=== PATIENT | female | born 1930 | race Caucasian/White ===

== ENCOUNTER 2016-09-11 15:47 | Emergency (ER) | payer MEDICARE, BC ==
[~2016-09-11 15:47] MED LIST: 1-ME1LIQ PO; ATOR40TA PO; DONE5TAB14 PO; ESCI10TA PO; ZOLP10TA3 PO
[2016-09-11 16:14] VITALS: BP 127/64; PULSE 57; RESP 18; TEMP 97.7; O2SAT 99
[2016-09-11] MEDS ORDERED: SODIUM CHLORIDE 0.9% FLUSH 10 ML FLUSH IVF PRN (16:15)
[2016-09-11] MEDS ORDERED: SODIUM CHLORID 0.9% 500 ML INJ 500 ML IV ONE (16:15)
[2016-09-11] MEDS ORDERED: ASPIRIN 81 MG CHEW TAB PO ONE (16:15)
[2016-09-11 16:17] VITALS: O2SAT 98
--- NOTE | 2016-09-11 16:20 | PD ---
HPI Chief Complaint: Chest Pain Time Seen by Provider: 16:11 Travel History International Travel<30 days: No Contact w/Intl Traveler<30days: No History of Present Illness HPI [id number] woman who presents to the emergency department she developed the abrupt onset of chest pain and difficulty breathing radiating into her right chest underneath her right breast. Symptoms started after she got in the car. She had a prescription for nitroglycerin because she's had coronary artery disease with an MD in the remote past. She does not take it very often at all. Daughter gave her the nitroglycerin after which she got a little bit sluggish , less responsive, and nauseous. The symptoms have mostly resolved but she states still feels like it is "hard to breathe". She denies any pain discomfort pressure in her chest. She denies any overt shortness of breath. She otherwise had been feeling generally well and healthy. No recent illness or injury. No recent change in exercise tolerance, dyspnea on exertion, chest pain, or other symptoms. She follows with Dr. Kahn. She reportedly had a stress test within the past year that was unremarkable. No pain in her legs or leg swelling. History Past Medical History Narrative Medical CAD, MD 20+ years ago, no stents, follows with Dr. Kahn Hypertension and hyperlipidemia Hypothyroidism Anxiety Social History Alcohol Use: No Tobacco Use: No Allergies-Medications (Allergen,Severity, Reaction): Coded Allergies: Shellfish (Verified Allergy, Severe, Anaphylaxis, 09/11/16) Tetanus Toxoid (Verified Allergy, Severe, Anaphylaxis, 09/11/16) Aspirin (Verified Adverse Reaction, Severe, 09/11/16) BRUSING Reported Meds & Prescriptions Reported Meds & Active Scripts Active Reported Alprazolam 0.5 Mg Tab 0.5 Mg PO Q4H PRN Lovastatin 20 Mg Tab 20 Mg PO DAILY Escitalopram (Escitalopram Oxalate) 10 Mg Tab 10 Mg PO DAILY Propranolol (Propranolol HCl) 20 Mg Tab 20 Mg PO Q12HR Nitroglycerin SL (Nitroglycerin) 0.4 Mg Subl 0.4 Mg SL DIRECTED PRN ONE TABLET UNDER THE TONGUE NEEDED FOR CHEST PAIN, MAY REPEAT EVERY FIVE MINUTES FOR A TOTAL OF 3 DOSES OR CALL 911 IF NO RELIEF Review of Systems Except as stated in HPI: all other systems reviewed are Neg Physical Exam Narrative GENERAL: Well-appearing 86-year-old woman, no acute distress. SKIN: Focused skin assessment warm/dry. HEAD: Atraumatic. Normocephalic. EYES: Pupils equal and round. No scleral icterus. No injection or drainage. Little bit of conjunctival pallor. ENT: No nasal bleeding or discharge. Mucous membranes pink and moist. NECK: Trachea midline. No JVD. CARDIOVASCULAR: Regular rate and rhythm. No murmur appreciated. RESPIRATORY: No accessory muscle use. Clear to auscultation. Breath sounds equal bilaterally. GASTROINTESTINAL: Abdomen is flat and soft. There is no significant epigastric or right upper quadrant tenderness. Negative Granados's. MUSCULOSKELETAL: No obvious deformities. No edema. NEUROLOGICAL: Awake and alert, but a little bit drowsy. No obvious cranial nerve deficits. Motor grossly within normal limits. Normal speech. Data Data Last Documented VS Vital Signs Date Time Temp Pulse Resp B/P Pulse Ox O2 Delivery O2 Flow Rate FiO2 09/11/16 19:12 16 98 Room Air 09/11/16 19:11 61 136/60 09/11/16 16:36 2 09/11/16 16:14 97.7 Orders Electrocardiogram (09/11/16 16:13) Ckmb (Isoenzyme) Profile (09/11/16 16:13) Complete Blood Count With Diff (09/11/16 16:13) Comprehensive Metabolic Panel (09/11/16 16:13) D-Dimer (09/11/16 16:13) Magnesium (Mg) (09/11/16 16:13) Prothrombin Time / Inr (Pt) (09/11/16 16:13) Act Partial Throm Time (Ptt) (09/11/16 16:13) Troponin I (09/11/16 16:13) Lipase (09/11/16 16:13) Chest, Single Ap (09/11/16 16:13) Ecg Monitoring (09/11/16 16:13) Bilateral Bp Monitoring (09/11/16 16:13) Iv Access Insert/Monitor (09/11/16 16:13) Oximetry (09/11/16 16:13) Oxygen Administration (09/11/16 16:13) Aspirin Chew (Aspirin Chew) (09/11/16 16:15) Sodium Chloride 0.9% Flush (Ns Flush) (09/11/16 16:15) Sodium Chlorid 0.9% 500 Ml Inj (Ns 500 M (09/11/16 16:15) Troponin I (09/11/16 17:32) Diet Regular Basic (09/11/16 Dinner) Labs Laboratory Tests Test 09/11/16 09/11/16 16:34 19:03 White Blood Count 7.4 TH/MM3 Red Blood Count 4.44 MIL/MM3 Hemoglobin 13.0 GM/DL Hematocrit 39.1 % Mean Corpuscular Volume 88.1 FL Mean Corpuscular Hemoglobin 29.2 PG Mean Corpuscular Hemoglobin 33.1 % Concent Red Cell Distribution Width 13.2 % Platelet Count 302 TH/MM3 Mean Platelet Volume 6.8 FL Neutrophils (%) (Auto) 58.6 % Lymphocytes (%) (Auto) 26.6 % Monocytes (%) (Auto) 10.4 % Eosinophils (%) (Auto) 3.4 % Basophils (%) (Auto) 1.0 % Neutrophils # (Auto) 4.2 TH/MM3 Lymphocytes # (Auto) 2.0 TH/MM3 Monocytes # (Auto) 0.8 TH/MM3 Eosinophils # (Auto) 0.3 TH/MM3 Basophils # (Auto) 0.1 TH/MM3 CBC Comment DIFF FINAL Differential Comment Prothrombin Time 11.2 SEC Prothromb Time International 1.0 RATIO Ratio Activated Partial 24.3 SEC Thromboplast Time D-Dimer Quantitative (PE/DVT) 0.49 MG/L FEU Sodium Level 144 MEQ/L Potassium Level 3.6 MEQ/L Chloride Level 107 MEQ/L Carbon Dioxide Level 28.7 MEQ/L Anion Gap 8 MEQ/L Blood Urea Nitrogen 21 MG/DL Creatinine 0.64 MG/DL Estimat Glomerular Filtration 88 ML/MIN Rate Random Glucose 90 MG/DL Calcium Level 8.5 MG/DL Magnesium Level 2.3 MG/DL Total Bilirubin 0.3 MG/DL Aspartate Amino Transf 16 U/L (AST/SGOT) Alanine Aminotransferase 18 U/L (ALT/SGPT) Alkaline Phosphatase 69 U/L Total Creatine Kinase 86 U/L Troponin I LESS THAN 0.02 LESS THAN 0.02 NG/ML NG/ML Total Protein 6.6 GM/DL Albumin 3.2 GM/DL Lipase 150 U/L [facility] Medical Decision Making Medical Screen Exam Complete: Yes Emergency Medical Condition: Yes Interpretation(s) My review of EKG: Sinus bradycardia at a rate of 60, left axis deviation, nonspecific lateral ST changes, occasional PVC. Compared to previous EKG from June 2015, there is no significant change. LABS: CBC is unremarkable. CMP is unremarkable Troponin is negative 2 Lipase is normal Coags unremarkable D-dimer 0.49 Chest x-ray: No acute disease. Differential Diagnosis ACS, hepatobiliary disease, pancreatitis, PE, dissection, other Narrative Course Medical decision making INITIAL: This is otherwise fairly healthy 78-year-old woman with a remote history of CAD and MD presents emergency department with the abrupt onset of chest pain that radiated into her right chest, started shortly prior to arrival. She had an episode of nausea and sluggishness after receiving nitroglycerin and may be related to some transient hypotension. Blood pressure is normal now. The symptoms are mostly resolved. She looks otherwise well. We 'll check EKG, chest x-ray, troponin, we'll also check d-dimer, as well as liver tests and lipase. Reassess. Diagnosis Primary Impression: Chest pain Qualified Code: R07.9 - Chest pain, unspecified type Additional Instructions: Continue current medications. Follow-up with her primary doctor in the next 2-4 days. Return to the emergency department for any new or worsening symptoms. Med/Other Pt SpecificInfo: No Change to Meds Disposition: 01 DISCHARGE HOME Condition: Stable Nura Marrero MD Sep 11, 2016 16:19
[2016-09-11] MEDS ORDERED: LOVA20TA PO (16:22)
[2016-09-11] MEDS ORDERED: PROP20TA3 PO (16:22)
[2016-09-11] MEDS ORDERED: ALPR0.5T3 PO (16:22)
[2016-09-11] MEDS ORDERED: ESCI10TA PO (16:22)
[2016-09-11] MEDS ORDERED: NITR1SUB3 SL (16:22)
--- NOTE | 2016-09-11 16:39 | RADHPO ---
EXAM DATE/TIME: 09/11/2016 16:18 [facility] COMPARISON: CHEST SINGLE AP, June 20, 2015, 0:57. INDICATIONS : Chest pain, weakness, syncopal episode starting today MEDICAL HISTORY : None. SURGICAL HISTORY : None. ENCOUNTER: Initial ACUITY: 1 day PAIN SCORE: 5/10 LOCATION: Bilateral chest FINDINGS: A single view of the chest demonstrates the lungs to be symmetrically aerated without evidence of mas s, infiltrate or effusion. The cardiomediastinal contours are unremarkable. Osseous structures are intact. CONCLUSION: No acute disease. Shayne Thomas MD FACR on September 11, 2016 at 16:37 Board Certified Radiologist. This report was verified electronically.
[2016-09-11 16:43] LABS: AUTOMATED NEUTROPHIL # 4.2 TH/MM3 (1.8-7.7); BASOPHIL # 0.1 TH/MM3 (0-0.2); EOSINOPHIL # 0.3 TH/MM3 (0-0.4); EOSINOPHIL % 3.4 % (0.0-4.0); HEMATOCRIT 39.1 % (35.0-46.0); HEMO FLAGS DIFF FINAL; LYMPH % 26.6 % (9.0-44.0); MEAN CELL VOLUME 88.1 FL (80.0-100.0); MEAN CORPUSCULAR HEMOGLOBIN 29.2 PG (27.0-34.0); MEAN CORPUSCULAR HGB CONC 33.1 % (32.0-36.0); MONO % 10.4 % (0.0-8.0); NEUT % 58.6 % (16.0-70.0); PLATELET COUNT 302 TH/MM3 (150-450); RED BLOOD COUNT 4.44 MIL/MM3 (4.00-5.30); RED CELL DISTRIBUTION WIDTH 13.2 % (11.6-17.2); WHITE BLOOD COUNT 7.4 TH/MM3 (4.0-11.0)
[2016-09-11 16:51] LABS: CHLORIDE 107 MEQ/L (98-107); POTASSIUM 3.6 MEQ/L (3.5-5.1); SODIUM (NA) 144 MEQ/L (136-145)
[2016-09-11 16:53] VITALS: BP_SYST 118; BP_SYST 124; BP_DIAS 55; BP_DIAS 68
[2016-09-11 16:55] LABS: ANION GAP 8 MEQ/L (5-15); BICARBONATE 28.7 MEQ/L (21.0-32.0); BLOOD UREA NITROGEN 21 MG/DL (7-18); MAGNESIUM 2.3 MG/DL (1.5-2.5)
[2016-09-11 16:58] LABS: ALT (GPT) 18 U/L (10-53); AST (GOT) 16 U/L (15-37); GLOMERULAR FILTRATION RATE 88 ML/MIN (>89)
[2016-09-11 17:00] LABS: TOTAL BILIRUBIN ADULT 0.3 MG/DL (0.2-1.0)
[2016-09-11 17:01] LABS: ALKALINE PHOSPHATASE 69 U/L (45-117)
[2016-09-11 17:06] LABS: CREATINE KINASE 86 U/L (26-192)
[2016-09-11 17:15] LABS: APTT (PATIENT) 24.3 SEC (24.3-30.1); PROTHROMBIN TIME - PATIENT 11.2 SEC (9.8-11.6)
[2016-09-11 18:32] VITALS: BP 138/64; PULSE 74; RESP 18; O2SAT 98
[2016-09-11 19:11] VITALS: BP 136/60; PULSE 61; RESP 16; O2SAT 98
--- NOTE | 2016-09-12 15:45 | EKG ---
Date Performed: 09/11/2016 Time Performed: 15:49:02 PTAGE: 86 years EKG: Sinus bradycardia with PVC(s) with 1st degree A-V block. Consider left atrial abnormality I nferior/lateral T wave changes are nonspecific When compared to previous tracing, criteria for left v entricular Hypertrophy is no longer met. Abnormal ECG PREVIOUS TRACING : 06/20/2015 00.45 DOCTOR: Robinson Mazariegos Interpretating Date/Time 09/12/2016 15:43:26
== END 2016-09-11 20:05 | disposition home or self-care (01) ==
LOC: PHED 15:47
DX: R07.9 Chest pain, unspecified (principal); R00.1 Bradycardia, unspecified; I25.10 Atherosclerotic heart disease of native coronary artery without angina pectoris; I25.2 Old myocardial infarction; I10 Essential (primary) hypertension; E78.5 Hyperlipidemia, unspecified; E03.9 Hypothyroidism, unspecified; F41.9 Anxiety disorder, unspecified; Z79.899 Other long term (current) drug therapy
CPT/HCPCS: 71010; 80053; 82550; 83690; 83735; 84484; 85025; 85379; 85610; 85730; 93005; 96360; 96361; 99285; J7040